=== PATIENT | female | born 1980 | race Caucasian/White ===

== ENCOUNTER 2017-06-09 21:28 | Emergency (ER) | payer MEDICAID ==
[~2017-06-09] VITALS: Ht 152.4 cm; Wt 76.2 kg
[~2017-06-09 21:28] MED LIST: birth control pills
[2017-06-10] MEDS ORDERED: IBUPROFEN 600MG TABLET PO STA (00:03)
[2017-06-10 00:19] LABS: BASOPHILS % 0.7 % (0.0-2.0); EOSINOPHILS % 1.6 % (0.0-5.0); HEMATOCRIT. 39.2 % (36.0-48.0); HEMOGLOBIN. 13.5 g/dL (12.0-16.0); LYMPHOCYTES % 30.8 % (20.0-50.0); MEAN CORPUSCULAR HEMOGLOBIN 29.7 pg (28.0-32.0); MEAN CORPUSCULAR VOLUME 86.3 fL (81.0-99.0); MEAN PLATELET VOLUME 8.5 fl (7.4-10.4); MONOCYTES % 6.6 % (2.0-8.0); NEUTROPHILS % 60.3 % (40.0-76.0); PLATELET 269 x1000/uL (130-400); RED BLOOD CELL COUNT 4.54 mill/uL (4.2-5.4); RED CELL DISTRIBUTION WIDTH 14.1 % (11.6-14.6)
[2017-06-10 00:24] LABS: CHLORIDE 103 mEq/L (98-107)
[2017-06-10 00:27] LABS: INR 0.9; PROTHROMBIN TIME 9.5 sec
[2017-06-10 00:32] LABS: CARBON DIOXIDE 28 mEq/L (21-32)
[2017-06-10 01:11] LABS: CLARITY URINE CLOUDY (CLEAR); COLOR URINE YELLOW (YELLOW); GLUCOSE URINE NEGATIVE (NEGATIVE); KETONES URINE NEGATIVE (NEGATIVE); LEUKOCYTE ESTERASE URINE TRACE (NEGATIVE); NITRITE URINE NEGATIVE (NEGATIVE); OCCULT BLOOD URINE 1+ (NEGATIVE); PROTEIN URINE NEGATIVE (NEGATIVE); SPECIFIC GRAVITY URINE 1.011 (1.005-1.030)
[2017-06-10 02:12] VITALS: BP 113/74
== END 2017-06-10 02:12 | disposition home or self-care (01) ==
LOC: ER 21:29
DX: R10.9 Unspecified abdominal pain (principal); R30.0 Dysuria
CPT/HCPCS: 36415; 71010; 80053; 81001; 81025; 83690; 85025; 85610; 99285